=== PATIENT | male | born 1995 | race Caucasian/White ===

== ENCOUNTER 2018-09-05 08:15 | Day surgery (SDC) | payer OTHER ==
[~2018-09-05] VITALS: Ht 172.7 cm; Wt 83.2 kg
[2018-09-05] MEDS ORDERED: PROAIR HFA0.09 MG/AC IH (08:38)
[2018-09-05] MEDS ORDERED: COZAAR 50MG50 MG/TAB PO (08:38)
[2018-09-05 08:57] VITALS: BP 120/86; PULSE 90; TEMP 97.9
[2018-09-05 12:05] VITALS: BP 139/77; PULSE 103; TEMP 98
--- NOTE | 2018-09-05 12:05 | NUR ---
Patient arrives back to [facility] alert and denies having any pain or nausea. Patient montior applied, vitals stable. Patient given water.
[2018-09-05 12:06] VITALS: TEMP 98.8
[2018-09-05 12:20] VITALS: BP 147/80; PULSE 104
--- NOTE | 2018-09-05 12:20 | NUR ---
Patient tolerates water and muffin without any problems. Vitals stable.
[2018-09-05 12:35] VITALS: BP 143/72; PULSE 106
--- NOTE | 2018-09-05 12:35 | NUR ---
Dismissal instructions gone over with patient. He voices understanding and all questions answered.
--- NOTE | 2018-09-05 12:45 | NUR ---
Patient discharged to home, patient leaves thanking staff for services.
== END 2018-09-05 12:45 | disposition home or self-care (01) ==
LOC: SDCO 08:15
DX: R31.0 Gross hematuria (principal); R30.0 Dysuria; R39.14 Feeling of incomplete bladder emptying; R35.1 Nocturia; I10 Essential (primary) hypertension; J45.909 Unspecified asthma, uncomplicated; Z79.899 Other long term (current) drug therapy; Z87.891 Personal history of nicotine dependence; Z80.51 Family history of malignant neoplasm of kidney
CPT/HCPCS: J0360; J0690; J1100; J2405; J2704; J3010; J7120; Q9967